=== PATIENT | female | born 1950 | race Caucasian/White ===

== ENCOUNTER 2018-02-13 04:21 | Inpatient (IN) | payer OTHER ==
[2018-02-13 04:51] LABS: WHITE BLOOD COUNT 15.6 10^3/ul (4.8-10.8)
[2018-02-13 04:51] LABS: ABNORMAL IP MESSAGE 1; HEMATOCRIT 41.8 % (37.0-47.0); HEMOGLOBIN 12.9 g/dl (12.0-16.0); MEAN CORPUSCULAR HGB CONC 30.9 g/dl (32.0-37.0); MEAN CORPUSCULAR VOLUME 93.9 fl (82.0-101.0); MEAN PLATELET VOLUME 11.3 fl (7.4-10.4); PLATELET COUNT 298 10^3/UL (140-415); RED BLOOD COUNT 4.45 10^6/ul (4.20-5.40); RED CELL DISTRIBUTION WIDTH 12.9 % (11.5-14.5)
[2018-02-13] MEDS ORDERED: PROPOFOL 100 ML (04:55)
[2018-02-13 05:07] LABS: POSITIVE DIFF @See below
[2018-02-13 05:09] LABS: LACTIC ACID 8.4 mmol/L (0.5-2.0)
[2018-02-13 05:09] LABS: ALANINE AMINOTRANSFERASE 24 IU/L (13-69); ALBUMIN 4.5 g/dl (3.3-4.9); ALBUMIN/GLOBULIN RATIO 1.32; ALKALINE PHOSPHATASE 89 IU/L (42-121); ANION GAP 30 (8-16); ASPARTATE AMINO TRANSFERASE 42 IU/L (15-46); BLOOD UREA NITROGEN 19 mg/dl (7-20); CALCIUM 8.6 mg/dl (8.4-10.2); CARBON DIOXIDE 18 mmol/L (21-31); CHLORIDE 104 mmol/L (97-110); GLUCOSE 314 mg/dl (70-220); POTASSIUM 4.1 mmol/L (3.5-5.1); SODIUM 148 mmol/L (135-144); TOTAL PROTEIN 7.9 g/dl (6.1-8.1)
[2018-02-13 05:11] LABS: PROTIME 13.3 Sec (11.9-14.9)
[2018-02-13 05:12] LABS: PARTIAL THROMBOPLASTIN TIME 26.6 Sec (25.0-35.0)
[2018-02-13 05:19] LABS: ADD UMIC YES; UR ASCORBIC ACID NEGATIVE (NEGATIVE); UR BACTERIA FEW /HPF (NONE SEEN); UR BILIRUBIN (Dip) NEGATIVE (NEGATIVE); UR BLOOD (Dip) NEGATIVE (NEGATIVE); UR CLARITY SLIGHTLY CLOUDY (CLEAR); UR COLOR YELLOW (YELLOW); UR GLUCOSE (Dip) 3+ mg/dL (NEGATIVE); UR KETONES (Dip) NEGATIVE (NEGATIVE); UR LEUKOCYTE ESTERASE (Dip) NEGATIVE Leu/ul (NEGATIVE); UR NITRITE (Dip) NEGATIVE (NEGATIVE); UR RBC 4 /HPF (0-5); UR TOTAL PROTEIN (Dip) 3+ mg/dl (NEGATIVE); UR UROBILINOGEN (Dip) NEGATIVE (NEGATIVE); UR WBC 6 /HPF (0-5)
[2018-02-13 05:21] LABS: TROPONIN-I < 0.012 ng/ml (0.00-0.12)
[2018-02-13] MEDS: PROPOFOL 100 ML IV ×2 (05:26→22:50)
[2018-02-13] MEDS: SOD CHLORIDE 0.9% 3,100 ML IV (05:48)
[2018-02-13] MEDS: VECURONIUM 10 MG VIAL IV ×2 (05:48→05:58)
[2018-02-13] MEDS: PIPER-TAZO 3.375 GM IV (PMX) 100 ML IVPB ×3 (05:51→18:34)
[2018-02-13] MEDS: SOD CHLORIDE 0.9% 1,000 ML IV ×2 (06:26→16:48)
[2018-02-13] MEDS ORDERED: ALBUTEROL HFA 8 GM INHALER INH (06:30)
[2018-02-13] MEDS ORDERED: IPRATROPIUM (HFA) 12.9 GM INHALER INH (06:30)
[2018-02-13] MEDS ORDERED: LORAZEPAM 2 MG INJ IV (06:30)
[2018-02-13] MEDS ORDERED: ACETAMINOPHEN 650 MG SUPP PR (06:30)
[2018-02-13] MEDS: VANCOMYCIN 1 GM (PMX) 250 ML IVPB (06:33)
[2018-02-13 06:43] LABS: LACTIC ACID 3.7 mmol/L (0.5-2.0)
[2018-02-13 06:53] LABS: AADO2 Arterial 563.7 mmHg (7.0-24.0); Allen Test ACCEPTAB; Arterial Base Excess -11.2 mmol/L (-3.0-3); Arterial Blood Gas Oxygen Sat 96.6 mmHG (95.0-98.0); Arterial COHb 1.1 % (0.0-3.0); Arterial Fraction of Oxyhgb 95.3 % (93.0-99.0); Arterial HCO3 17.1 mmol/L (22.0-26.0); Arterial MetHb 0.2 % (0.0-1.5); Arterial Total Hemglobin 13.4 g/dl (12.0-18.0); Arterial pCO2 47.7 mmhg (35-45); MODE VENT - AC; Site Right Radial
[2018-02-13] MEDS ORDERED: DEXTROSE 50% 50 ML SYRINGE IV ×4 (07:00→13:30)
[2018-02-13] MEDS ORDERED: GLUCAGON 1 MG INJ IM (07:00)
[2018-02-13] MEDS ORDERED: GLUCOSE GEL 15 GRAM TUBE PO ×2 (07:00)
[2018-02-13] MEDS ORDERED: GLUCOSE GEL 15 GRAM TUBE BUCCAL (07:00)
[2018-02-13] MEDS ORDERED: ETOMIDATE 20 MG INJ (07:00)
[2018-02-13] MEDS ORDERED: ROCURONIUM 50 MG INJ (07:00)
[2018-02-13] MEDS: FENTAnyl (DRIP) 1000 mcg/100mL 100 ML IV (07:22)
[2018-02-13] MEDS ORDERED: VANCOMYCIN IV PER PHARMACY XX (07:30)
[2018-02-13] MEDS: VANCOMYCIN 1 GM in 250 ML IVPB (07:44)
[2018-02-13] MEDS: MIDAZOLAM 1 MG/ML 5 ML INJ IV (07:51)
[2018-02-13] MEDS: MIDAZOLAM (DRIP) 50 mg/50 mL 50 ML IV ×2 (09:07→20:55)
[2018-02-13] MEDS: INSULIN ASPART [NOVOLOG] 3 ML PEN SC (09:25)
[2018-02-13 09:36] LABS: ADD MAN DIFF? NO; EOSINOPHILS % (M) 3 % (0-7); ERYTHROBLAST% (NRBC) (M) 1 % (0-0); LYMPHOCYTES #M 8.2 10^3/ul (0.8-2.9); LYMPHOCYTES % (M) 53 % (15-51); MONOCYTE #M 0.3 10^3/ul (0.3-0.9); MONOCYTES % (M) 2 % (0-11); PLATELET ESTIMATE NORMAL; POLYCHROMASIA 3+ (0-0); SEGMENTED NEUTROPHILS (M) % 42 % (39-77); SMUDGE%M 1 % (0-0)
[2018-02-13 09:46] LABS: WHITE BLOOD COUNT 12.1 10^3/ul (4.8-10.8)
[2018-02-13 09:46] LABS: BASOPHILS % 0.2 % (0.0-2.0); EOSINOPHILS # 0.1 10^3/ul (0.0-0.5); EOSINOPHILS % 0.5 % (0.0-7.0); HEMATOCRIT 33.5 % (37.0-47.0); HEMOGLOBIN 11.1 g/dl (12.0-16.0); LYMPHOCYTES % 16.2 % (15.0-51.0); MEAN CORPUSCULAR HEMOGLOBIN 29.7 pg (29.0-33.0); MEAN CORPUSCULAR HGB CONC 33.1 g/dl (32.0-37.0); MEAN CORPUSCULAR VOLUME 89.6 fl (82.0-101.0); MEAN PLATELET VOLUME 11.5 fl (7.4-10.4); MONOCYTE # 0.8 10^3/ul (0.3-0.9); MONOCYTES % 6.2 % (0.0-11.0); NEUTROPHIL # 9.2 10^3/ul (1.6-7.5); NEUTROPHILS % 76.4 % (39.0-77.0); PLATELET COUNT 201 10^3/UL (140-415); RED BLOOD COUNT 3.74 10^6/ul (4.20-5.40)
[2018-02-13 10:02] LABS: ALANINE AMINOTRANSFERASE 41 IU/L (13-69); ALBUMIN 3.4 g/dl (3.3-4.9); ALBUMIN/GLOBULIN RATIO 1.17; ALKALINE PHOSPHATASE 73 IU/L (42-121); ANION GAP 16 (8-16); ASPARTATE AMINO TRANSFERASE 56 IU/L (15-46); BLOOD UREA NITROGEN 18 mg/dl (7-20); CARBON DIOXIDE 18 mmol/L (21-31); CHLORIDE 112 mmol/L (97-110); CREATININE 0.71 mg/dl (0.44-1.00); GLUCOSE 212 mg/dl (70-220); POTASSIUM 5.9 mmol/L (3.5-5.1); SODIUM 140 mmol/L (135-144); TOTAL PROTEIN 6.3 g/dl (6.1-8.1)
[2018-02-13 10:07] LABS: LACTIC ACID 2.7 mmol/L (0.5-2.0)
[2018-02-13 10:10] LABS: B-TYPE NATRIURETIC PEPTIDE 1290 PG/ML (0-125)
[2018-02-13 10:12] LABS: HEMOGLOBIN A1C 6.9 % (0-5.9)
[2018-02-13 10:24] LABS: D-DIMER 4218.58 ng/ml (<460)
[2018-02-13 10:25] LABS: BASOPHIL # 0.1 10^3/ul (0.0-0.1); BASOPHILS % 0.4 % (0.0-2.0); EOSINOPHILS # 0.2 10^3/ul (0.0-0.5); EOSINOPHILS % 1.5 % (0.0-7.0)
[2018-02-13 10:26] LABS: ADD MAN DIFF? NO
[2018-02-13] MEDS: PANTOPRAZOLE (EC) 40 MG TAB PO (11:13)
[2018-02-13] MEDS: ENOXAPARIN 30 MG/0.3 ML SYG SC (11:30)
[2018-02-13 12:23] LABS: AADO2 Arterial 155.4 mmHg (7.0-24.0); Allen Test ACCEPTAB; Arterial Base Excess -5.2 mmol/L (-3.0-3); Arterial Blood Gas Oxygen Sat 98.9 mmHG (95.0-98.0); Arterial COHb 0.1 % (0.0-3.0); Arterial Fraction of Oxyhgb 98.5 % (93.0-99.0); Arterial HCO3 17.2 mmol/L (22.0-26.0); Arterial MetHb 0.3 % (0.0-1.5); Arterial Total Hemglobin 11.8 g/dl (12.0-18.0); Arterial pCO2 25.2 mmhg (35-45); Blood Gas Low PEEP Setting 0 cmH2O; MODE VENT - AC; Site Right Radial
[2018-02-13] MEDS: METHYLPREDNISOLONE 40 MG INJ IV ×2 (12:29→18:27)
[2018-02-13] MEDS: ACCU-CHEK XX ×10 (14:06→23:15)
[2018-02-13] MEDS: INSULIN HUMAN REGULAR 100 UNIT in SOD CHLORIDE 0.9% 99 ML IV (15:04)
[2018-02-13] MEDS: FLUTICASONE 0.05% 16 GM NAS SPRAY NASAL (21:00)
[2018-02-13] MEDS: ATORVASTATIN 40 MG TAB PO (21:00)
[2018-02-13] MEDS ORDERED: FAMOTIDINE 20 MG TAB NGT (21:00)
[2018-02-14] MEDS: ACCU-CHEK XX ×13 (00:15→12:20)
[2018-02-14] MEDS: METHYLPREDNISOLONE 40 MG INJ IV ×3 (00:22→12:33)
[2018-02-14] MEDS: PIPER-TAZO 3.375 GM IV (PMX) 100 ML IVPB ×4 (00:22→17:49)
[2018-02-14] MEDS ORDERED: ACCU-CHEK XX (02:00)
[2018-02-14] MEDS: SOD CHLORIDE 0.9% 1,000 ML IV ×2 (03:45→12:33)
[2018-02-14] MEDS: PROPOFOL 100 ML IV (05:07)
[2018-02-14 05:44] LABS: ADD MAN DIFF? NO
[2018-02-14 05:56] LABS: WHITE BLOOD COUNT 14.7 10^3/ul (4.8-10.8)
[2018-02-14 05:56] LABS: BASOPHILS % 0.1 % (0.0-2.0); HEMATOCRIT 35.7 % (37.0-47.0); HEMOGLOBIN 11.9 g/dl (12.0-16.0); LYMPHOCYTES # 1.1 10^3/ul (0.8-2.9); LYMPHOCYTES % 7.8 % (15.0-51.0); MEAN CORPUSCULAR HEMOGLOBIN 29.5 pg (29.0-33.0); MEAN CORPUSCULAR HGB CONC 33.3 g/dl (32.0-37.0); MEAN CORPUSCULAR VOLUME 88.6 fl (82.0-101.0); MEAN PLATELET VOLUME 11.3 fl (7.4-10.4); MONOCYTE # 0.4 10^3/ul (0.3-0.9); MONOCYTES % 2.6 % (0.0-11.0); NEUTROPHILS % 88.6 % (39.0-77.0); PLATELET COUNT 217 10^3/UL (140-415); RED BLOOD COUNT 4.03 10^6/ul (4.20-5.40); RED CELL DISTRIBUTION WIDTH 13.2 % (11.5-14.5)
[2018-02-14] MEDS ORDERED: PANTOPRAZOLE 40 MG INJ IV (06:00)
[2018-02-14 06:07] LABS: ANION GAP 14 (8-16); BLOOD UREA NITROGEN 22 mg/dl (7-20); CALCIUM 7.9 mg/dl (8.4-10.2); CARBON DIOXIDE 19 mmol/L (21-31); CHLORIDE 113 mmol/L (97-110); CREATININE 0.69 mg/dl (0.44-1.00); GLUCOSE 170 mg/dl (70-220); MAGNESIUM 1.9 mg/dl (1.7-2.5); POTASSIUM 4.2 mmol/L (3.5-5.1); SODIUM 142 mmol/L (135-144)
[2018-02-14] MEDS: PANTOPRAZOLE (EC) 40 MG TAB PO (08:07)
[2018-02-14] MEDS: FLUTICASONE 0.05% 16 GM NAS SPRAY NASAL ×2 (09:00→22:15)
[2018-02-14] MEDS: FUROSEMIDE 20 MG INJ IV (09:00)
[2018-02-14] MEDS: ENOXAPARIN 30 MG/0.3 ML SYG SC (09:18)
[2018-02-14] MEDS: ASPIRIN 81 MG TAB PO (09:18)
[2018-02-14] MEDS: ESCITALOPRAM 10 MG TAB PO (09:18)
[2018-02-14 11:31] LABS: AADO2 Arterial 147.2 mmHg (7.0-24.0); Allen Test ACCEPTAB; Arterial Blood Gas Oxygen Sat 97.8 mmHG (95.0-98.0); Arterial COHb 0.3 % (0.0-3.0); Arterial Fraction of Oxyhgb 97.3 % (93.0-99.0); Arterial MetHb 0.2 % (0.0-1.5); Arterial Total Hemglobin 12.7 g/dl (12.0-18.0); Arterial pCO2 32.1 mmhg (35-45); MODE VENT - CPAP; Site Left Radial
[2018-02-14] MEDS ORDERED: GLUCOSE GEL 15 GRAM TUBE BUCCAL (13:30)
[2018-02-14] MEDS ORDERED: DEXTROSE 50% 50 ML SYRINGE IV ×2 (13:30)
[2018-02-14] MEDS ORDERED: GLUCAGON 1 MG INJ IM (13:30)
[2018-02-14] MEDS ORDERED: GLUCOSE GEL 15 GRAM TUBE PO ×2 (13:30)
[2018-02-14] MEDS: VANCOMYCIN 1.25 GM in SOD CHLORIDE 0.9% 250 ML IVPB (13:34)
[2018-02-14] MEDS: ALBUTEROL/IPRATROPIUM (NEB) 3 ML AMP HHN ×2 (13:48→20:44)
[2018-02-14] MEDS: INSULIN ASPART [NOVOLOG] 3 ML PEN SC ×3 (16:55→20:30)
[2018-02-14] MEDS: FUROSEMIDE 40 MG INJ IV (17:49)
[2018-02-14] MEDS: INSULIN GLARGINE [LANtus] 3 ML PEN SC (20:28)
[2018-02-14] MEDS: ATORVASTATIN 40 MG TAB PO (20:31)
[2018-02-15] MEDS: PIPER-TAZO 3.375 GM IV (PMX) 100 ML IVPB ×3 (00:41→11:36)
[2018-02-15] MEDS: ALBUTEROL/IPRATROPIUM (NEB) 3 ML AMP HHN ×4 (01:40→19:57)
[2018-02-15] MEDS: VANCOMYCIN 1.25 GM in SOD CHLORIDE 0.9% 250 ML IVPB ×2 (02:21→14:15)
[2018-02-15] MEDS: ACCU-CHEK XX (02:36)
[2018-02-15] MEDS: INSULIN ASPART [NOVOLOG] 3 ML PEN SC ×8 (02:51→20:18)
[2018-02-15 05:08] LABS: ADD MAN DIFF? NO
[2018-02-15 05:10] LABS: WHITE BLOOD COUNT 17.9 10^3/ul (4.8-10.8)
[2018-02-15 05:10] LABS: BASOPHILS % 0.2 % (0.0-2.0); HEMATOCRIT 31.5 % (37.0-47.0); HEMOGLOBIN 10.3 g/dl (12.0-16.0); LYMPHOCYTES # 1.3 10^3/ul (0.8-2.9); LYMPHOCYTES % 7.4 % (15.0-51.0); MEAN CORPUSCULAR HEMOGLOBIN 29.2 pg (29.0-33.0); MEAN CORPUSCULAR HGB CONC 32.7 g/dl (32.0-37.0); MEAN CORPUSCULAR VOLUME 89.2 fl (82.0-101.0); MEAN PLATELET VOLUME 11.8 fl (7.4-10.4); MONOCYTE # 1.4 10^3/ul (0.3-0.9); MONOCYTES % 7.9 % (0.0-11.0); NEUTROPHILS % 83.8 % (39.0-77.0); NUCLEATED RED BLOOD CELLS% 0.1 /100WBC (0.0-0.0); PLATELET COUNT 211 10^3/UL (140-415); RED BLOOD COUNT 3.53 10^6/ul (4.20-5.40)
[2018-02-15 05:39] LABS: ANION GAP 17 (8-16); BLOOD UREA NITROGEN 23 mg/dl (7-20); CALCIUM 7.9 mg/dl (8.4-10.2); CARBON DIOXIDE 20 mmol/L (21-31); CHLORIDE 110 mmol/L (97-110); CREATININE 0.91 mg/dl (0.44-1.00); GLUCOSE 318 mg/dl (70-220); POTASSIUM 3.9 mmol/L (3.5-5.1); SODIUM 143 mmol/L (135-144)
[2018-02-15] MEDS: FUROSEMIDE 40 MG INJ IV ×2 (06:28→17:26)
[2018-02-15] MEDS: PANTOPRAZOLE (EC) 40 MG TAB PO (06:28)
[2018-02-15] MEDS: ASPIRIN 81 MG TAB PO ×2 (09:32→19:30)
[2018-02-15] MEDS: ESCITALOPRAM 10 MG TAB PO (09:33)
[2018-02-15] MEDS: FLUTICASONE 0.05% 16 GM NAS SPRAY NASAL ×2 (09:33→21:22)
[2018-02-15] MEDS: ENOXAPARIN 30 MG/0.3 ML SYG SC (09:48)
[2018-02-15] MEDS: NITROGLYCERIN (SL) 0.4 MG TAB SL ×4 (16:47→20:48)
[2018-02-15] MEDS ORDERED: ASPIRIN 81 MG TAB PO (19:00)
[2018-02-15] MEDS: HEPARIN 1000 UNITS/ML 10 ML INJ IV (19:27)
[2018-02-15] MEDS: HEPARIN 25000 UNITS/250 ML 250 ML IV (19:41)
[2018-02-15 20:04] LABS: ADD MAN DIFF? NO
[2018-02-15] MEDS: ATORVASTATIN 40 MG TAB PO (20:16)
[2018-02-15 20:24] LABS: CREATINE KINASE 158 IU/L (23-200)
[2018-02-15 20:25] LABS: BASOPHIL # 0.1 10^3/ul (0.0-0.1); BASOPHILS % 0.3 % (0.0-2.0); EOSINOPHILS # 0.2 10^3/ul (0.0-0.5); EOSINOPHILS % 0.9 % (0.0-7.0); HEMATOCRIT 33.6 % (37.0-47.0); HEMOGLOBIN 10.9 g/dl (12.0-16.0); LYMPHOCYTES # 3.3 10^3/ul (0.8-2.9); MEAN CORPUSCULAR HEMOGLOBIN 29.2 pg (29.0-33.0); MEAN CORPUSCULAR HGB CONC 32.4 g/dl (32.0-37.0); MEAN CORPUSCULAR VOLUME 90.1 fl (82.0-101.0); MEAN PLATELET VOLUME 11.3 fl (7.4-10.4); MONOCYTE # 1.2 10^3/ul (0.3-0.9); MONOCYTES % 6.6 % (0.0-11.0); NEUTROPHIL # 13.4 10^3/ul (1.6-7.5); NEUTROPHILS % 73.8 % (39.0-77.0); PLATELET COUNT 227 10^3/UL (140-415); PT RATIO 1.1; RED BLOOD COUNT 3.73 10^6/ul (4.20-5.40)
[2018-02-15 20:25] LABS: WHITE BLOOD COUNT 18.2 10^3/ul (4.8-10.8)
[2018-02-15 20:27] LABS: PARTIAL THROMBOPLASTIN TIME 58.2 Sec (25.0-35.0)
[2018-02-15] MEDS: morphine 2 MG INJ IV (20:32)
[2018-02-15 20:37] LABS: CK INDEX 3.5; CK-MB 5.54 ng/ml (0.0-2.4)
[2018-02-15] MEDS: INSULIN GLARGINE [LANtus] 3 ML PEN SC (20:50)
[2018-02-15 21:23] LABS: PROTIME 14.3 Sec (11.9-14.9)
[2018-02-15 21:24] LABS: INR 1.09
[2018-02-16] MEDS: ACETAMINOPHEN 325 MG TAB PO ×2 (00:03→21:14)
[2018-02-16] MEDS: IOHEXOL 300MG/ML 150 ML BTL (00:30)
[2018-02-16] MEDS: SOD CHLORIDE 0.9% 100 ML (00:31)
[2018-02-16 01:21] LABS: PARTIAL THROMBOPLASTIN TIME 37.8 Sec (25.0-35.0)
[2018-02-16 01:26] LABS: CREATINE KINASE 134 IU/L (23-200)
[2018-02-16] MEDS: HEPARIN 1000 UNITS/ML 10 ML INJ IV ×2 (01:31→19:36)
[2018-02-16 01:39] LABS: VANCOMYCIN,TROUGH 12.6 ug/ml (10.0-20.0)
[2018-02-16 01:40] LABS: CK INDEX 2.6; CK-MB 3.54 ng/ml (0.0-2.4)
[2018-02-16] MEDS: VANCOMYCIN 1.25 GM in SOD CHLORIDE 0.9% 250 ML IVPB ×2 (02:23→16:46)
[2018-02-16] MEDS: ACCU-CHEK XX (02:23)
[2018-02-16] MEDS: ALBUTEROL/IPRATROPIUM (NEB) 3 ML AMP HHN ×4 (03:05→19:56)
[2018-02-16] MEDS: LEVOFLOXACIN 750 MG TABLET PO (06:54)
[2018-02-16] MEDS: PANTOPRAZOLE (EC) 40 MG TAB PO (06:55)
[2018-02-16] MEDS: FUROSEMIDE 40 MG INJ IV ×2 (06:55→18:00)
[2018-02-16 07:26] LABS: ADD MAN DIFF? NO
[2018-02-16 07:27] LABS: BASOPHIL # 0.1 10^3/ul (0.0-0.1); BASOPHILS % 0.3 % (0.0-2.0); EOSINOPHILS # 0.2 10^3/ul (0.0-0.5); EOSINOPHILS % 1.3 % (0.0-7.0); HEMATOCRIT 33.2 % (37.0-47.0); HEMOGLOBIN 10.7 g/dl (12.0-16.0); LYMPHOCYTES # 2.4 10^3/ul (0.8-2.9); LYMPHOCYTES % 14.8 % (15.0-51.0); MEAN CORPUSCULAR HEMOGLOBIN 29.2 pg (29.0-33.0); MEAN CORPUSCULAR HGB CONC 32.2 g/dl (32.0-37.0); MEAN CORPUSCULAR VOLUME 90.5 fl (82.0-101.0); MEAN PLATELET VOLUME 11.8 fl (7.4-10.4); MONOCYTE # 1.2 10^3/ul (0.3-0.9); MONOCYTES % 7.5 % (0.0-11.0); NEUTROPHIL # 12.5 10^3/ul (1.6-7.5); NEUTROPHILS % 75.8 % (39.0-77.0); PLATELET COUNT 215 10^3/UL (140-415); RED BLOOD COUNT 3.67 10^6/ul (4.20-5.40); RED CELL DISTRIBUTION WIDTH 14.1 % (11.5-14.5)
[2018-02-16 07:27] LABS: WHITE BLOOD COUNT 16.5 10^3/ul (4.8-10.8)
[2018-02-16] MEDS: morphine 2 MG INJ IV (07:35)
[2018-02-16 07:48] LABS: PARTIAL THROMBOPLASTIN TIME 69.5 Sec (25.0-35.0)
[2018-02-16] MEDS: INSULIN ASPART [NOVOLOG] 3 ML PEN SC ×7 (07:55→21:00)
[2018-02-16 08:01] LABS: CREATINE KINASE 114 IU/L (23-200)
[2018-02-16 08:13] LABS: CK-MB 2.33 ng/ml (0.0-2.4)
[2018-02-16] MEDS: ENOXAPARIN 30 MG/0.3 ML SYG SC (09:00)
[2018-02-16] MEDS: ASPIRIN 81 MG TAB PO (09:50)
[2018-02-16] MEDS: ESCITALOPRAM 10 MG TAB PO (09:50)
[2018-02-16] MEDS: FLUTICASONE 0.05% 16 GM NAS SPRAY NASAL ×2 (09:50→22:35)
[2018-02-16] MEDS ORDERED: LIDOCAINE 1% (MDV) 20 ML INJ ×4 (12:30→12:40)
[2018-02-16] MEDS ORDERED: IODIXANOL LOCM 100 ML BTL (12:30)
[2018-02-16] MEDS ORDERED: HEPARIN 1000 UNITS/ML 10 ML INJ (12:44)
[2018-02-16] MEDS ORDERED: MIDAZOLAM 1 MG/ML 2 ML INJ (12:45)
[2018-02-16] MEDS ORDERED: NITROGLYCERIN (IC) 100 MCG/ML INJ (12:45)
[2018-02-16] MEDS ORDERED: FENTAnyl 50 MCG/ML VIAL (12:45)
[2018-02-16] MEDS ORDERED: VERAPAMIL 5 MG INJ (12:45)
[2018-02-16 16:08] LABS: ANION GAP 14 (8-16); BLOOD UREA NITROGEN 20 mg/dl (7-20); CALCIUM 7.8 mg/dl (8.4-10.2); CARBON DIOXIDE 29 mmol/L (21-31); CHLORIDE 104 mmol/L (97-110); CREATININE 0.77 mg/dl (0.44-1.00); GLUCOSE 125 mg/dl (70-220); MAGNESIUM 1.8 mg/dl (1.7-2.5); PHOSPHORUS 2.9 mg/dl (2.5-4.9); POTASSIUM 3.5 mmol/L (3.5-5.1); SODIUM 143 mmol/L (135-144)
[2018-02-16] MEDS: HEPARIN 25000 UNITS/250 ML 250 ML IV (17:23)
[2018-02-16 18:00] LABS: CREATINE KINASE 87 IU/L (23-200)
[2018-02-16 18:09] LABS: PARTIAL THROMBOPLASTIN TIME 42.9 Sec (25.0-35.0)
[2018-02-16 18:13] LABS: CK INDEX 1.1; CK-MB 0.95 ng/ml (0.0-2.4)
[2018-02-16 20:25] LABS: ANION GAP 14 (8-16); BLOOD UREA NITROGEN 20 mg/dl (7-20); CALCIUM 8.1 mg/dl (8.4-10.2); CARBON DIOXIDE 31 mmol/L (21-31); CHLORIDE 98 mmol/L (97-110); CREATININE 0.75 mg/dl (0.44-1.00); GLUCOSE 186 mg/dl (70-220); MAGNESIUM 1.9 mg/dl (1.7-2.5); POTASSIUM 3.4 mmol/L (3.5-5.1); SODIUM 140 mmol/L (135-144)
[2018-02-16] MEDS: ATORVASTATIN 40 MG TAB PO (21:02)
[2018-02-16] MEDS: INSULIN GLARGINE [LANtus] 3 ML PEN SC (21:05)
[2018-02-16] MEDS: MAGNESIUM SULFATE 2 GM/50 ML 50 ML IVPB (21:22)
[2018-02-16] MEDS: ZOLPIDEM 5 MG TAB PO (21:23)
[2018-02-16] MEDS: POTASSIUM CHLORIDE 100 ML IVPB (22:35)
[2018-02-16 23:53] LABS: CK-MB 1.27 ng/ml (0.0-2.4)
[2018-02-17 00:09] LABS: CK INDEX 1.6; CREATINE KINASE 80 IU/L (23-200)
[2018-02-17] MEDS: ACCU-CHEK XX ×13 (02:00→23:39)
[2018-02-17] MEDS: ALBUTEROL/IPRATROPIUM (NEB) 3 ML AMP HHN ×3 (02:15→14:00)
[2018-02-17 02:16] LABS: ADD MAN DIFF? NO
[2018-02-17 02:17] LABS: WHITE BLOOD COUNT 10.7 10^3/ul (4.8-10.8)
[2018-02-17 02:17] LABS: BASOPHILS % 0.3 % (0.0-2.0); EOSINOPHILS # 0.4 10^3/ul (0.0-0.5); EOSINOPHILS % 3.7 % (0.0-7.0); HEMATOCRIT 34.1 % (37.0-47.0); LYMPHOCYTES # 3.1 10^3/ul (0.8-2.9); LYMPHOCYTES % 28.9 % (15.0-51.0); MEAN CORPUSCULAR HEMOGLOBIN 28.9 pg (29.0-33.0); MEAN CORPUSCULAR HGB CONC 32.3 g/dl (32.0-37.0); MEAN CORPUSCULAR VOLUME 89.5 fl (82.0-101.0); MEAN PLATELET VOLUME 10.9 fl (7.4-10.4); MONOCYTE # 0.8 10^3/ul (0.3-0.9); MONOCYTES % 7.5 % (0.0-11.0); NEUTROPHIL # 6.3 10^3/ul (1.6-7.5); NEUTROPHILS % 59.2 % (39.0-77.0); PLATELET COUNT 207 10^3/UL (140-415); RED BLOOD COUNT 3.81 10^6/ul (4.20-5.40); RED CELL DISTRIBUTION WIDTH 13.2 % (11.5-14.5)
[2018-02-17 02:39] LABS: ANION GAP 13 (8-16); BLOOD UREA NITROGEN 20 mg/dl (7-20); CALCIUM 8.1 mg/dl (8.4-10.2); CARBON DIOXIDE 31 mmol/L (21-31); CHLORIDE 98 mmol/L (97-110); CREATININE 0.65 mg/dl (0.44-1.00); GLUCOSE 159 mg/dl (70-220); MAGNESIUM 2.7 mg/dl (1.7-2.5); POTASSIUM 3.7 mmol/L (3.5-5.1); SODIUM 138 mmol/L (135-144)
[2018-02-17 03:02] LABS: PARTIAL THROMBOPLASTIN TIME 114.2 Sec (25.0-35.0)
[2018-02-17] MEDS: VANCOMYCIN 1.25 GM in SOD CHLORIDE 0.9% 250 ML IVPB ×3 (04:27→15:39)
[2018-02-17] MEDS: FUROSEMIDE 40 MG INJ IV (05:50)
[2018-02-17] MEDS: LEVOFLOXACIN 750 MG TABLET PO (06:00)
[2018-02-17] MEDS: PANTOPRAZOLE (EC) 40 MG TAB PO (06:37)
[2018-02-17] MEDS: INSULIN ASPART [NOVOLOG] 3 ML PEN SC ×2 (07:35→07:41)
[2018-02-17] MEDS: ESCITALOPRAM 10 MG TAB PO (08:30)
[2018-02-17] MEDS: ASPIRIN 81 MG TAB PO (08:30)
[2018-02-17] MEDS ORDERED: PAPAVERINE 60 MG INJ ×2 (08:31→11:09)
[2018-02-17] MEDS ORDERED: THROMBIN 5000 UNIT VIAL (08:31)
[2018-02-17] MEDS ORDERED: VANCOMYCIN 1 GM INJ ×2 (08:31→11:09)
[2018-02-17] MEDS: FLUTICASONE 0.05% 16 GM NAS SPRAY NASAL ×2 (08:31→20:25)
[2018-02-17] MEDS ORDERED: GELATIN SIZE 100 SPONGE (08:31)
[2018-02-17] MEDS ORDERED: HEPARIN 1000 UNITS/ML 10 ML INJ ×3 (08:32→10:58)
[2018-02-17] MEDS: HEPARIN 1000 UNITS/ML 10 ML INJ INJ (08:35)
[2018-02-17] MEDS: VANCOMYCIN 500MG INJ IMPLANTED (08:35)
[2018-02-17] MEDS: PAPAVERINE 60 MG INJ IRR (08:35)
[2018-02-17] MEDS: HEPARIN (10000 UNITS/ML) 10,000 UNIT, MILRINONE LACTATE 10 MG in SOD CHLORIDE 0.9% 1,00... SC (09:00)
[2018-02-17] MEDS: NORepinephrine 8MG/250 ML (PMX 250 ML IV (09:00)
[2018-02-17] MEDS: PHENYLephrine 20MG IN 250 ML 250 ML IV (09:00)
[2018-02-17] MEDS: EPINEPHrine 4 MG in DEXTROSE 5% 246 ML IV (09:00)
[2018-02-17] MEDS: MILRINONE LACTATE 2 MG in SOD CHLORIDE 0.9% 50 ML IV (09:00)
[2018-02-17] MEDS: ASPIRIN 600 MG SUPP PR (09:00)
[2018-02-17] MEDS ORDERED: MIDAZOLAM 5 ML ×2 (09:31→13:30)
[2018-02-17] MEDS ORDERED: MAGNESIUM SULFATE (MG) 50% 10 ML INJ (10:10)
[2018-02-17] MEDS ORDERED: POTASSIUM CHLORIDE 40 MEQ INJ (10:10)
[2018-02-17] MEDS ORDERED: LIDOCAINE 100 MG SYRINGE (10:11)
[2018-02-17] MEDS ORDERED: ALBUMIN HUMAN 25% 0 ML (10:12)
[2018-02-17] MEDS ORDERED: NA BICARBONATE 8.4% 50 ML SYG (10:12)
[2018-02-17] MEDS ORDERED: CEFAZOLIN 1 GM INJ ×2 (10:17→13:28)
[2018-02-17] MEDS ORDERED: MANNITOL 20% 0 ML IV (10:43)
[2018-02-17] MEDS ORDERED: PHENYLephrine 10 MG INJ (10:43)
[2018-02-17] MEDS ORDERED: FUROSEMIDE 20 MG INJ (10:47)
[2018-02-17] MEDS ORDERED: PROTAMINE 250 MG INJ (12:46)
[2018-02-17] MEDS ORDERED: LIDOCAINE 2% (SDV) 5 ML INJ (13:21)
[2018-02-17] MEDS ORDERED: ETOMIDATE 20 MG INJ (13:21)
[2018-02-17] MEDS ORDERED: MAGNESIUM SULFATE 1 GM/D5W 100 ML IVPB (13:30)
[2018-02-17] MEDS ORDERED: DOPamine-D5W 1.6 MG/ML 250 ML IV (13:30)
[2018-02-17] MEDS ORDERED: NITROGLYCERIN 50 MG/D5W (PMX) 250 ML IV (13:30)
[2018-02-17] MEDS ORDERED: DEXTROSE 50% 50 ML SYRINGE IV ×4 (13:30→17:00)
[2018-02-17] MEDS ORDERED: POTASSIUM CHLORIDE 50 ML IVPB ×2 (13:30→17:00)
[2018-02-17] MEDS ORDERED: ROCURONIUM 50 MG INJ (13:31)
[2018-02-17] MEDS: NITROGLYCERIN 50 MG/D5W (PMX) 250 ML IV (14:27)
[2018-02-17] MEDS: DOPamine-D5W 1.6 MG/ML 250 ML IV (14:28)
[2018-02-17] MEDS: POTASSIUM CHLORIDE 40 MEQ, CALCIUM CHLORIDE 10% 1 GM in DEXTROSE 5%-0.225% NACL 1,000 ML IV ×2 (14:30→15:42)
[2018-02-17] MEDS: INSULIN HUMAN REGULAR 100 UNIT in SOD CHLORIDE 0.9% 99 ML IVPB (14:30)
[2018-02-17 14:54] LABS: MODE VENT - AC; MetHgb Mixed Venous 0.5 %; Mixed Venous Base Excess 1.8 mmol/L; Mixed Venous COHb 0.3 %; Mixed Venous Fraction OxyHgb 77.5 %; Mixed Venous Oxygen Sat 78.1 mmHG (65.0-75.0); Mixed Venous Total Hemglobin 10.3 g/dl; Sample Type BLMV; Site PAL
[2018-02-17 14:55] LABS: Arterial Base Excess 2.4 mmol/L (-3.0-3); Arterial Blood Gas Oxygen Sat 98.6 mmHG (95.0-98.0); Arterial COHb 0.3 % (0.0-3.0); Arterial HCO3 25.4 mmol/L (22.0-26.0); Arterial MetHb 0.3 % (0.0-1.5); Arterial Total Hemglobin 10.6 g/dl (12.0-18.0); Arterial pCO2 33.5 mmhg (35-45); MODE VENT - AC; Site A-Line
[2018-02-17] MEDS: morphine 2 MG INJ IV (15:03)
[2018-02-17 15:17] LABS: WHITE BLOOD COUNT 13.8 10^3/ul (4.8-10.8)
[2018-02-17 15:17] LABS: HEMATOCRIT 30.8 % (37.0-47.0); MEAN CORPUSCULAR HEMOGLOBIN 29.2 pg (29.0-33.0); MEAN CORPUSCULAR HGB CONC 32.5 g/dl (32.0-37.0); MEAN CORPUSCULAR VOLUME 89.8 fl (82.0-101.0); MEAN PLATELET VOLUME 11.7 fl (7.4-10.4); PLATELET COUNT 166 10^3/UL (140-415); RED BLOOD COUNT 3.43 10^6/ul (4.20-5.40); RED CELL DISTRIBUTION WIDTH 13.1 % (11.5-14.5)
[2018-02-17 15:32] LABS: ANION GAP 11 (8-16); BLOOD UREA NITROGEN 18 mg/dl (7-20); CALCIUM 7.5 mg/dl (8.4-10.2); CARBON DIOXIDE 30 mmol/L (21-31); CHLORIDE 103 mmol/L (97-110); CREATININE 0.62 mg/dl (0.44-1.00); GLUCOSE 99 mg/dl (70-220); MAGNESIUM 1.9 mg/dl (1.7-2.5); POTASSIUM 3.1 mmol/L (3.5-5.1); SODIUM 141 mmol/L (135-144)
[2018-02-17 15:34] LABS: INR 1.12; PARTIAL THROMBOPLASTIN TIME 20.1 Sec (25.0-35.0); PROTIME 14.6 Sec (11.9-14.9); PT RATIO 1.1
[2018-02-17] MEDS: CEFAZOLIN 1 GM/50 ML (PMX) 50 ML IVPB ×2 (15:38→22:03)
[2018-02-17 15:49] LABS: ADD MAN DIFF? YES; POSITIVE DIFF @See below
[2018-02-17] MEDS: PROPOFOL 100 ML IV ×3 (15:56→21:59)
[2018-02-17] MEDS: HYDROmorphONE 0.5 MG/0.5 ML SYG IV ×2 (16:01→17:37)
[2018-02-17 16:51] LABS: MYCOPLASMA PNEUMONIAE AB (IGG) 3.13
[2018-02-17] MEDS ORDERED: INSULIN HUMAN REGULAR 100 UNIT in SOD CHLORIDE 0.9% 99 ML IV (17:00)
[2018-02-17] MEDS ORDERED: ACCU-CHEK XX (17:00)
[2018-02-17] MEDS: POTASSIUM CHLORIDE 50 ML IVPB ×4 (17:09→22:54)
[2018-02-17] MEDS: INSULIN HUMAN REGULAR 100 UNIT in SOD CHLORIDE 0.9% 99 ML IV (17:20)
[2018-02-17 19:32] LABS: ANISOCYTOSIS 1+ (0-0); BAND NEUTROPHILS #M 1.3 10^3/ul (0.0-0.6); BAND NEUTROPHILS % (M) 10 % (0-4); EOSINOPHILS % (M) 1 % (0-7); GIANT THROMBO% (M) 2 % (0-0); LYMPHOCYTES #M 1.9 10^3/ul (0.8-2.9); LYMPHOCYTES % (M) 14 % (15-51); MONOCYTE #M 0.4 10^3/ul (0.3-0.9); MONOCYTES % (M) 3 % (0-11); PLATELET ESTIMATE NORMAL; POLYCHROMASIA 2+ (0-0); REACTIVE LYMPHOCYTES #M 0.1 10^3/ul (0.0-0.0); REACTIVE LYMPHOCYTES% (M) 1 % (0-0); SEGMENTED NEUTROPHILS (M) % 71 % (39-77); SMUDGE%M 4 % (0-0); TEAR DROP CELLS 1+ (0-0)
[2018-02-17] MEDS: FAMOTIDINE 20 MG INJ IV (20:23)
[2018-02-17 22:27] LABS: POTASSIUM 3.9 mmol/L (3.5-5.1)
[2018-02-18] MEDS: ACETAMINOPHEN 650 MG SUPP PR (00:56)
[2018-02-18] MEDS: PROPOFOL 100 ML IV (00:56)
[2018-02-18] MEDS: ACCU-CHEK XX ×13 (01:10→12:46)
[2018-02-18] MEDS: VANCOMYCIN 1.25 GM in SOD CHLORIDE 0.9% 250 ML IVPB ×2 (01:51→14:13)
[2018-02-18] MEDS: FUROSEMIDE 40 MG INJ IV (02:18)
[2018-02-18] MEDS: HYDROmorphONE 0.5 MG/0.5 ML SYG IV (03:13)
[2018-02-18 05:13] LABS: ADD MAN DIFF? NO
[2018-02-18 05:14] LABS: BASOPHILS % 0.2 % (0.0-2.0); EOSINOPHILS # 0.2 10^3/ul (0.0-0.5); EOSINOPHILS % 1.9 % (0.0-7.0); HEMATOCRIT 31.8 % (37.0-47.0); HEMOGLOBIN 10.4 g/dl (12.0-16.0); LYMPHOCYTES # 1.3 10^3/ul (0.8-2.9); LYMPHOCYTES % 11.2 % (15.0-51.0); MEAN CORPUSCULAR HGB CONC 32.7 g/dl (32.0-37.0); MEAN CORPUSCULAR VOLUME 88.6 fl (82.0-101.0); MEAN PLATELET VOLUME 12.2 fl (7.4-10.4); MONOCYTE # 0.9 10^3/ul (0.3-0.9); MONOCYTES % 7.6 % (0.0-11.0); NEUTROPHIL # 9.1 10^3/ul (1.6-7.5); NEUTROPHILS % 78.7 % (39.0-77.0); PLATELET COUNT 201 10^3/UL (140-415); RED BLOOD COUNT 3.59 10^6/ul (4.20-5.40); RED CELL DISTRIBUTION WIDTH 13.2 % (11.5-14.5)
[2018-02-18 05:14] LABS: WHITE BLOOD COUNT 11.6 10^3/ul (4.8-10.8)
[2018-02-18] MEDS: morphine 2 MG INJ IV ×5 (05:29→21:16)
[2018-02-18] MEDS: CEFAZOLIN 1 GM/50 ML (PMX) 50 ML IVPB (05:30)
[2018-02-18 05:38] LABS: INR 1.02; PROTIME 13.5 Sec (11.9-14.9); PT RATIO 1.1
[2018-02-18 05:39] LABS: PARTIAL THROMBOPLASTIN TIME 29.6 Sec (25.0-35.0)
[2018-02-18 05:48] LABS: AADO2 Arterial 136.3 mmHg (7.0-24.0); Arterial Base Excess 2.9 mmol/L (-3.0-3); Arterial Blood Gas Oxygen Sat 97.4 mmHG (95.0-98.0); Arterial COHb 0.3 % (0.0-3.0); Arterial Fraction of Oxyhgb 96.8 % (93.0-99.0); Arterial HCO3 27.6 mmol/L (22.0-26.0); Arterial MetHb 0.3 % (0.0-1.5); Arterial Total Hemglobin 11.9 g/dl (12.0-18.0); Arterial pCO2 42.6 mmhg (35-45); Blood Gas PS 8; MODE VENT - CPAP; Site A-Line
[2018-02-18 05:54] LABS: ANION GAP 13 (8-16); BLOOD UREA NITROGEN 17 mg/dl (7-20); CALCIUM 8.3 mg/dl (8.4-10.2); CARBON DIOXIDE 26 mmol/L (21-31); CHLORIDE 104 mmol/L (97-110); CREATININE 0.67 mg/dl (0.44-1.00); GLUCOSE 130 mg/dl (70-220); SODIUM 139 mmol/L (135-144)
[2018-02-18] MEDS: LEVOFLOXACIN 750 MG TABLET PO ×2 (06:00→12:48)
[2018-02-18] MEDS: POTASSIUM CHLORIDE 40 MEQ, CALCIUM CHLORIDE 10% 1 GM in DEXTROSE 5%-0.225% NACL 1,000 ML IV (06:26)
[2018-02-18] MEDS: INSULIN HUMAN REGULAR 100 UNIT in SOD CHLORIDE 0.9% 99 ML IV (06:28)
[2018-02-18] MEDS: POTASSIUM CHLORIDE 50 ML IVPB (06:32)
[2018-02-18] MEDS ORDERED: KETOROLAC 30 MG INJ IV (06:49)
[2018-02-18] MEDS: KETOROLAC 30 MG INJ IV (06:53)
[2018-02-18] MEDS: PANTOPRAZOLE (EC) 40 MG TAB PO (07:05)
[2018-02-18] MEDS: FLUTICASONE 0.05% 16 GM NAS SPRAY NASAL ×2 (09:00→20:10)
[2018-02-18] MEDS: ESCITALOPRAM 10 MG TAB PO ×2 (09:00→12:48)
[2018-02-18] MEDS: ASPIRIN 325 MG TAB PO ×2 (09:00→12:47)
[2018-02-18] MEDS: FAMOTIDINE 20 MG INJ IV ×2 (09:06→20:09)
[2018-02-18] MEDS: LISINOPRIL 5 MG TAB PO ×2 (10:00→12:47)
[2018-02-18] MEDS: FUROSEMIDE 20 MG INJ IV ×2 (10:46→18:25)
[2018-02-18] MEDS: INSULIN GLARGINE [LANtus] 3 ML PEN SC (12:51)
[2018-02-18] MEDS: ONDANSETRON 4 MG INJ IV ×2 (12:59→20:09)
[2018-02-18] MEDS: NITROGLYCERIN 50 MG/D5W (PMX) 250 ML IV (13:00)
[2018-02-18 16:10] LABS: ANION GAP 14 (8-16); BLOOD UREA NITROGEN 21 mg/dl (7-20); CARBON DIOXIDE 26 mmol/L (21-31); CHLORIDE 103 mmol/L (97-110); CREATININE 0.81 mg/dl (0.44-1.00); GLUCOSE 138 mg/dl (70-220); POTASSIUM 4.6 mmol/L (3.5-5.1); SODIUM 138 mmol/L (135-144)
[2018-02-18 16:11] LABS: MAGNESIUM 1.9 mg/dl (1.7-2.5)
[2018-02-18 17:50] LABS: HEMATOCRIT 27.8 % (37.0-47.0)
[2018-02-18] MEDS: INSULIN ASPART [NOVOLOG] 3 ML PEN SC ×3 (18:22→20:27)
[2018-02-18] MEDS: ATORVASTATIN 40 MG TAB PO (20:10)
[2018-02-18] MEDS: ACETAMINOPHEN 650MG/20.3ML CUP NGT (21:04)
[2018-02-19] MEDS: ACCU-CHEK XX (02:24)
[2018-02-19] MEDS: VANCOMYCIN 1.25 GM in SOD CHLORIDE 0.9% 250 ML IVPB ×2 (02:25→14:41)
[2018-02-19] MEDS: morphine 2 MG INJ IV ×2 (02:56→09:04)
[2018-02-19] MEDS: HYDROmorphONE 0.5 MG/0.5 ML SYG IV (04:43)
[2018-02-19] MEDS: ONDANSETRON 4 MG INJ IV (04:43)
[2018-02-19 05:27] LABS: ADD MAN DIFF? NO
[2018-02-19 05:32] LABS: WHITE BLOOD COUNT 15.6 10^3/ul (4.8-10.8)
[2018-02-19 05:32] LABS: ABNORMAL IP MESSAGE 1; BASOPHILS % 0.2 % (0.0-2.0); EOSINOPHILS # 0.6 10^3/ul (0.0-0.5); EOSINOPHILS % 3.9 % (0.0-7.0); HEMATOCRIT 27.8 % (37.0-47.0); LYMPHOCYTES % 12.6 % (15.0-51.0); MEAN CORPUSCULAR HEMOGLOBIN 29.4 pg (29.0-33.0); MEAN CORPUSCULAR HGB CONC 32.4 g/dl (32.0-37.0); MEAN CORPUSCULAR VOLUME 90.8 fl (82.0-101.0); MEAN PLATELET VOLUME 11.9 fl (7.4-10.4); MONOCYTE # 1.7 10^3/ul (0.3-0.9); MONOCYTES % 10.7 % (0.0-11.0); NEUTROPHIL # 11.2 10^3/ul (1.6-7.5); NEUTROPHILS % 71.7 % (39.0-77.0); PLATELET COUNT 168 10^3/UL (140-415); RED BLOOD COUNT 3.06 10^6/ul (4.20-5.40); RED CELL DISTRIBUTION WIDTH 13.3 % (11.5-14.5)
[2018-02-19 05:39] LABS: POSITIVE DIFF @See below
[2018-02-19 05:49] LABS: ANION GAP 13 (8-16); BLOOD UREA NITROGEN 26 mg/dl (7-20); CARBON DIOXIDE 29 mmol/L (21-31); CHLORIDE 101 mmol/L (97-110); GLUCOSE 188 mg/dl (70-220); PHOSPHORUS 3.7 mg/dl (2.5-4.9); POTASSIUM 4.8 mmol/L (3.5-5.1); SODIUM 138 mmol/L (135-144)
[2018-02-19 05:51] LABS: INR 1.07; PT RATIO 1.1
[2018-02-19 05:52] LABS: PARTIAL THROMBOPLASTIN TIME 24.3 Sec (25.0-35.0)
[2018-02-19] MEDS: FUROSEMIDE 20 MG INJ IV (06:15)
[2018-02-19] MEDS: LEVOFLOXACIN 750 MG TABLET PO (06:15)
[2018-02-19] MEDS: PANTOPRAZOLE (EC) 40 MG TAB PO (06:15)
[2018-02-19] MEDS: ESCITALOPRAM 10 MG TAB PO (08:33)
[2018-02-19] MEDS: ASPIRIN 325 MG TAB PO (08:33)
[2018-02-19] MEDS: LISINOPRIL 5 MG TAB PO (08:33)
[2018-02-19] MEDS: FLUTICASONE 0.05% 16 GM NAS SPRAY NASAL ×2 (08:34→20:25)
[2018-02-19] MEDS: FAMOTIDINE 20 MG INJ IV (08:34)
[2018-02-19] MEDS: INSULIN ASPART [NOVOLOG] 3 ML PEN SC ×7 (08:35→20:30)
[2018-02-19] MEDS: INSULIN GLARGINE [LANtus] 3 ML PEN SC (08:38)
[2018-02-19] MEDS: OXYCODONE/ACETAMINOPHEN (5/325) TAB PO ×4 (10:21→20:25)
[2018-02-19 13:49] LABS: VANCOMYCIN,TROUGH 13.1 ug/ml (10.0-20.0)
[2018-02-19] MEDS: FAMOTIDINE 20 MG TAB PO (20:24)
[2018-02-19] MEDS: ZOLPIDEM 5 MG TAB PO (20:24)
[2018-02-19] MEDS: ATORVASTATIN 40 MG TAB PO (20:25)
[2018-02-19] MEDS: ENOXAPARIN 40 MG/0.4 ML SYG SC (20:27)
[2018-02-20] MEDS: ACCU-CHEK XX (02:00)
[2018-02-20] MEDS: VANCOMYCIN 1.25 GM in SOD CHLORIDE 0.9% 250 ML IVPB ×2 (03:41→13:58)
[2018-02-20] MEDS: LEVOFLOXACIN 750 MG TABLET PO (05:30)
[2018-02-20 05:46] LABS: ADD MAN DIFF? NO
[2018-02-20 05:50] LABS: ABNORMAL IP MESSAGE 1; BASOPHILS % 0.3 % (0.0-2.0); EOSINOPHILS # 0.6 10^3/ul (0.0-0.5); EOSINOPHILS % 4.1 % (0.0-7.0); HEMATOCRIT 27.9 % (37.0-47.0); HEMOGLOBIN 8.9 g/dl (12.0-16.0); LYMPHOCYTES # 1.8 10^3/ul (0.8-2.9); LYMPHOCYTES % 12.5 % (15.0-51.0); MEAN CORPUSCULAR HEMOGLOBIN 29.2 pg (29.0-33.0); MEAN CORPUSCULAR HGB CONC 31.9 g/dl (32.0-37.0); MEAN CORPUSCULAR VOLUME 91.5 fl (82.0-101.0); MEAN PLATELET VOLUME 11.4 fl (7.4-10.4); MONOCYTE # 1.6 10^3/ul (0.3-0.9); MONOCYTES % 10.9 % (0.0-11.0); NEUTROPHIL # 10.3 10^3/ul (1.6-7.5); NEUTROPHILS % 71.2 % (39.0-77.0); PLATELET COUNT 196 10^3/UL (140-415); RED BLOOD COUNT 3.05 10^6/ul (4.20-5.40); RED CELL DISTRIBUTION WIDTH 13.4 % (11.5-14.5)
[2018-02-20 05:50] LABS: WHITE BLOOD COUNT 14.5 10^3/ul (4.8-10.8)
[2018-02-20 06:11] LABS: ANION GAP 12 (8-16); BLOOD UREA NITROGEN 33 mg/dl (7-20); CALCIUM 8.3 mg/dl (8.4-10.2); CARBON DIOXIDE 29 mmol/L (21-31); CHLORIDE 101 mmol/L (97-110); CREATININE 0.93 mg/dl (0.44-1.00); GLUCOSE 133 mg/dl (70-220); POTASSIUM 4.8 mmol/L (3.5-5.1); SODIUM 137 mmol/L (135-144)
[2018-02-20 06:14] LABS: POSITIVE DIFF @See below
[2018-02-20] MEDS: PANTOPRAZOLE (EC) 40 MG TAB PO (06:36)
[2018-02-20] MEDS: OXYCODONE/ACETAMINOPHEN (5/325) TAB PO ×3 (06:38→23:21)
[2018-02-20] MEDS: INSULIN ASPART [NOVOLOG] 3 ML PEN SC ×7 (07:35→21:00)
[2018-02-20] MEDS: FAMOTIDINE 20 MG TAB PO ×2 (07:55→20:57)
[2018-02-20] MEDS: INSULIN GLARGINE [LANtus] 3 ML PEN SC (07:59)
[2018-02-20] MEDS: FUROSEMIDE 20 MG INJ IV (09:05)
[2018-02-20] MEDS: ASPIRIN 325 MG TAB PO (09:06)
[2018-02-20] MEDS: LISINOPRIL 5 MG TAB PO (09:06)
[2018-02-20] MEDS: ESCITALOPRAM 10 MG TAB PO (09:06)
[2018-02-20] MEDS: FLUTICASONE 0.05% 16 GM NAS SPRAY NASAL ×2 (09:07→20:37)
[2018-02-20] MEDS: ENOXAPARIN 40 MG/0.4 ML SYG SC ×2 (09:08→20:42)
[2018-02-20] MEDS: ATORVASTATIN 40 MG TAB PO (20:36)
[2018-02-20] MEDS ORDERED: GUAIFENESIN/CODEINE 5ML CUP PO (23:30)
[2018-02-20] MEDS: ALBUTEROL/IPRATROPIUM (NEB) 3 ML AMP HHN (23:46)
[2018-02-21] MEDS: GUAIFENESIN/DM 5ML CUP PO (00:18)
[2018-02-21] MEDS: ACCU-CHEK XX (02:28)
[2018-02-21] MEDS: VANCOMYCIN 1.25 GM in SOD CHLORIDE 0.9% 250 ML IVPB ×2 (03:09→14:10)
[2018-02-21] MEDS: PANTOPRAZOLE (EC) 40 MG TAB PO (06:17)
[2018-02-21 07:21] LABS: ADD MAN DIFF? NO
[2018-02-21 07:24] LABS: ABNORMAL IP MESSAGE 1; BASOPHILS % 0.3 % (0.0-2.0); EOSINOPHILS # 0.5 10^3/ul (0.0-0.5); EOSINOPHILS % 3.5 % (0.0-7.0); HEMATOCRIT 27.2 % (37.0-47.0); HEMOGLOBIN 8.7 g/dl (12.0-16.0); LYMPHOCYTES # 2.3 10^3/ul (0.8-2.9); MEAN CORPUSCULAR HEMOGLOBIN 29.2 pg (29.0-33.0); MEAN CORPUSCULAR VOLUME 91.3 fl (82.0-101.0); MEAN PLATELET VOLUME 11.4 fl (7.4-10.4); MONOCYTE # 1.7 10^3/ul (0.3-0.9); NEUTROPHIL # 8.3 10^3/ul (1.6-7.5); NEUTROPHILS % 64.2 % (39.0-77.0); PLATELET COUNT 216 10^3/UL (140-415); RED BLOOD COUNT 2.98 10^6/ul (4.20-5.40); RED CELL DISTRIBUTION WIDTH 13.2 % (11.5-14.5)
[2018-02-21 07:24] LABS: WHITE BLOOD COUNT 12.9 10^3/ul (4.8-10.8)
[2018-02-21 07:31] LABS: POSITIVE DIFF @See below
[2018-02-21 07:43] LABS: ANION GAP 10 (8-16); BLOOD UREA NITROGEN 21 mg/dl (7-20); CALCIUM 8.1 mg/dl (8.4-10.2); CARBON DIOXIDE 28 mmol/L (21-31); CHLORIDE 103 mmol/L (97-110); CREATININE 0.79 mg/dl (0.44-1.00); GLUCOSE 98 mg/dl (70-220); POTASSIUM 4.2 mmol/L (3.5-5.1); SODIUM 137 mmol/L (135-144)
[2018-02-21] MEDS: INSULIN ASPART [NOVOLOG] 3 ML PEN SC ×7 (07:55→21:00)
[2018-02-21] MEDS: FAMOTIDINE 20 MG TAB PO ×2 (08:18→20:59)
[2018-02-21] MEDS: ESCITALOPRAM 10 MG TAB PO (08:19)
[2018-02-21] MEDS: LISINOPRIL 5 MG TAB PO (08:19)
[2018-02-21] MEDS: ASPIRIN 325 MG TAB PO (08:22)
[2018-02-21] MEDS: ENOXAPARIN 40 MG/0.4 ML SYG SC ×2 (08:36→21:10)
[2018-02-21] MEDS: INSULIN GLARGINE [LANtus] 3 ML PEN SC (08:37)
[2018-02-21] MEDS: FLUTICASONE 0.05% 16 GM NAS SPRAY NASAL ×2 (09:20→21:00)
[2018-02-21] MEDS: morphine 2 MG INJ IV ×3 (09:26→18:05)
[2018-02-21] MEDS: ATORVASTATIN 40 MG TAB PO (20:53)
[2018-02-21] MEDS: OXYCODONE/ACETAMINOPHEN (5/325) TAB PO (22:38)
[2018-02-22] MEDS: ACCU-CHEK XX (01:27)
[2018-02-22] MEDS: VANCOMYCIN 1.25 GM in SOD CHLORIDE 0.9% 250 ML IVPB ×2 (01:48→14:14)
[2018-02-22] MEDS: FUROSEMIDE 20 MG TAB PO (06:13)
[2018-02-22] MEDS: PANTOPRAZOLE (EC) 40 MG TAB PO (06:51)
[2018-02-22 08:26] LABS: ADD MAN DIFF? NO
[2018-02-22 08:29] LABS: WHITE BLOOD COUNT 13.8 10^3/ul (4.8-10.8)
[2018-02-22 08:29] LABS: ABNORMAL IP MESSAGE 1; BASOPHILS % 0.3 % (0.0-2.0); EOSINOPHILS # 0.4 10^3/ul (0.0-0.5); EOSINOPHILS % 2.5 % (0.0-7.0); HEMATOCRIT 29.4 % (37.0-47.0); HEMOGLOBIN 9.4 g/dl (12.0-16.0); LYMPHOCYTES # 2.3 10^3/ul (0.8-2.9); LYMPHOCYTES % 16.9 % (15.0-51.0); MEAN CORPUSCULAR HEMOGLOBIN 29.2 pg (29.0-33.0); MEAN CORPUSCULAR VOLUME 91.3 fl (82.0-101.0); MEAN PLATELET VOLUME 11.3 fl (7.4-10.4); MONOCYTES % 14.3 % (0.0-11.0); NEUTROPHIL # 8.9 10^3/ul (1.6-7.5); NEUTROPHILS % 64.4 % (39.0-77.0); PLATELET COUNT 264 10^3/UL (140-415); RED BLOOD COUNT 3.22 10^6/ul (4.20-5.40); RED CELL DISTRIBUTION WIDTH 13.1 % (11.5-14.5)
[2018-02-22 08:30] LABS: POSITIVE DIFF @See below
[2018-02-22] MEDS: FLUTICASONE 0.05% 16 GM NAS SPRAY NASAL ×2 (08:35→21:00)
[2018-02-22] MEDS: FAMOTIDINE 20 MG TAB PO ×2 (08:35→21:00)
[2018-02-22] MEDS: ASPIRIN 81 MG TAB PO (08:36)
[2018-02-22] MEDS: ESCITALOPRAM 10 MG TAB PO (08:37)
[2018-02-22] MEDS: CLOPIDOGREL 75 MG TAB PO (08:37)
[2018-02-22] MEDS: LISINOPRIL 5 MG TAB PO (08:37)
[2018-02-22] MEDS: ENOXAPARIN 40 MG/0.4 ML SYG SC ×2 (08:38→20:57)
[2018-02-22] MEDS: INSULIN ASPART [NOVOLOG] 3 ML PEN SC ×7 (08:39→20:59)
[2018-02-22] MEDS: INSULIN GLARGINE [LANtus] 3 ML PEN SC (08:40)
[2018-02-22 08:56] LABS: ANION GAP 12 (8-16); BLOOD UREA NITROGEN 19 mg/dl (7-20); CALCIUM 8.4 mg/dl (8.4-10.2); CARBON DIOXIDE 30 mmol/L (21-31); CHLORIDE 101 mmol/L (97-110); CREATININE 0.72 mg/dl (0.44-1.00); GLUCOSE 144 mg/dl (70-220); POTASSIUM 4.5 mmol/L (3.5-5.1); SODIUM 138 mmol/L (135-144)
[2018-02-22] MEDS: OXYCODONE/ACETAMINOPHEN (5/325) TAB PO ×3 (14:14→23:23)
[2018-02-22] MEDS: ATORVASTATIN 40 MG TAB PO (21:00)
[2018-02-23] MEDS: VANCOMYCIN 1.25 GM in SOD CHLORIDE 0.9% 250 ML IVPB ×2 (01:54→15:22)
[2018-02-23] MEDS: ACCU-CHEK XX (02:00)
[2018-02-23] MEDS ORDERED: FUROSEMIDE 20 MG INJ IV (05:00)
[2018-02-23] MEDS ORDERED: LEVOFLOXACIN 750 MG TABLET PO (06:00)
[2018-02-23] MEDS: PANTOPRAZOLE (EC) 40 MG TAB PO (06:44)
[2018-02-23] MEDS: FUROSEMIDE 20 MG TAB PO (06:45)
[2018-02-23 07:38] LABS: ADD MAN DIFF? NO
[2018-02-23 07:47] LABS: WHITE BLOOD COUNT 13.3 10^3/ul (4.8-10.8)
[2018-02-23 07:47] LABS: ABNORMAL IP MESSAGE 1; BASOPHILS % 0.3 % (0.0-2.0); EOSINOPHILS # 0.4 10^3/ul (0.0-0.5); EOSINOPHILS % 2.7 % (0.0-7.0); HEMATOCRIT 25.7 % (37.0-47.0); HEMOGLOBIN 8.3 g/dl (12.0-16.0); LYMPHOCYTES # 2.3 10^3/ul (0.8-2.9); MEAN CORPUSCULAR HGB CONC 32.3 g/dl (32.0-37.0); MEAN CORPUSCULAR VOLUME 89.9 fl (82.0-101.0); MEAN PLATELET VOLUME 10.8 fl (7.4-10.4); MONOCYTE # 1.5 10^3/ul (0.3-0.9); MONOCYTES % 11.4 % (0.0-11.0); NEUTROPHIL # 8.9 10^3/ul (1.6-7.5); NEUTROPHILS % 66.8 % (39.0-77.0); PLATELET COUNT 277 10^3/UL (140-415); RED BLOOD COUNT 2.86 10^6/ul (4.20-5.40); RED CELL DISTRIBUTION WIDTH 13.1 % (11.5-14.5)
[2018-02-23 07:48] LABS: POSITIVE DIFF @See below
[2018-02-23 08:23] LABS: ANION GAP 10 (8-16); BLOOD UREA NITROGEN 17 mg/dl (7-20); CALCIUM 7.8 mg/dl (8.4-10.2); CARBON DIOXIDE 29 mmol/L (21-31); CHLORIDE 103 mmol/L (97-110); CREATININE 0.72 mg/dl (0.44-1.00); GLUCOSE 141 mg/dl (70-220); POTASSIUM 4.2 mmol/L (3.5-5.1); SODIUM 138 mmol/L (135-144)
[2018-02-23] MEDS: INSULIN ASPART [NOVOLOG] 3 ML PEN SC ×7 (08:24→20:50)
[2018-02-23] MEDS: INSULIN GLARGINE [LANtus] 3 ML PEN SC (08:25)
[2018-02-23] MEDS: ENOXAPARIN 40 MG/0.4 ML SYG SC ×2 (08:25→20:58)
[2018-02-23] MEDS: FAMOTIDINE 20 MG TAB PO (08:51)
[2018-02-23] MEDS: CLOPIDOGREL 75 MG TAB PO (08:52)
[2018-02-23] MEDS: LISINOPRIL 5 MG TAB PO (08:52)
[2018-02-23] MEDS: ASPIRIN 81 MG TAB PO (08:52)
[2018-02-23] MEDS: FLUTICASONE 0.05% 16 GM NAS SPRAY NASAL ×2 (08:52→20:49)
[2018-02-23] MEDS: ESCITALOPRAM 10 MG TAB PO (08:53)
[2018-02-23] MEDS: OXYCODONE/ACETAMINOPHEN (5/325) TAB PO ×2 (09:01→21:03)
[2018-02-23] MEDS: ATORVASTATIN 40 MG TAB PO (20:49)
[2018-02-23] MEDS: BISACODYL 10 MG SUPP PR (21:24)
[2018-02-24] MEDS: ACCU-CHEK XX ×2 (00:56→22:26)
[2018-02-24 05:17] LABS: WHITE BLOOD COUNT 13.9 10^3/ul (4.8-10.8)
[2018-02-24 05:17] LABS: ADD MAN DIFF? NO; BASOPHILS % 0.2 % (0.0-2.0); EOSINOPHILS # 0.4 10^3/ul (0.0-0.5); EOSINOPHILS % 3.2 % (0.0-7.0); HEMATOCRIT 26.3 % (37.0-47.0); HEMOGLOBIN 8.6 g/dl (12.0-16.0); LYMPHOCYTES # 2.4 10^3/ul (0.8-2.9); LYMPHOCYTES % 17.2 % (15.0-51.0); MEAN CORPUSCULAR HEMOGLOBIN 29.3 pg (29.0-33.0); MEAN CORPUSCULAR HGB CONC 32.7 g/dl (32.0-37.0); MEAN CORPUSCULAR VOLUME 89.5 fl (82.0-101.0); MEAN PLATELET VOLUME 10.4 fl (7.4-10.4); MONOCYTE # 1.4 10^3/ul (0.3-0.9); MONOCYTES % 10.1 % (0.0-11.0); NEUTROPHIL # 9.4 10^3/ul (1.6-7.5); NEUTROPHILS % 67.7 % (39.0-77.0); PLATELET COUNT 341 10^3/UL (140-415); RED BLOOD COUNT 2.94 10^6/ul (4.20-5.40); RED CELL DISTRIBUTION WIDTH 13.1 % (11.5-14.5)
[2018-02-24] MEDS: FUROSEMIDE 20 MG TAB PO (05:43)
[2018-02-24] MEDS: OXYCODONE/ACETAMINOPHEN (5/325) TAB PO ×3 (05:46→20:43)
[2018-02-24 05:48] LABS: ANION GAP 10 (8-16); BLOOD UREA NITROGEN 15 mg/dl (7-20); CALCIUM 7.9 mg/dl (8.4-10.2); CARBON DIOXIDE 32 mmol/L (21-31); CHLORIDE 100 mmol/L (97-110); CREATININE 0.75 mg/dl (0.44-1.00); GLUCOSE 104 mg/dl (70-220); MAGNESIUM 2.1 mg/dl (1.7-2.5); PHOSPHORUS 4.1 mg/dl (2.5-4.9); POTASSIUM 4.1 mmol/L (3.5-5.1); SODIUM 138 mmol/L (135-144)
[2018-02-24] MEDS: PANTOPRAZOLE (EC) 40 MG TAB PO (07:00)
[2018-02-24] MEDS: INSULIN ASPART [NOVOLOG] 3 ML PEN SC ×8 (07:50→21:00)
[2018-02-24] MEDS: ESCITALOPRAM 10 MG TAB PO (08:48)
[2018-02-24] MEDS: CLOPIDOGREL 75 MG TAB PO (08:48)
[2018-02-24] MEDS: LISINOPRIL 5 MG TAB PO (08:49)
[2018-02-24] MEDS: ENOXAPARIN 40 MG/0.4 ML SYG SC ×2 (08:52→20:48)
[2018-02-24] MEDS: FLUTICASONE 0.05% 16 GM NAS SPRAY NASAL ×2 (09:00→21:00)
[2018-02-24] MEDS ORDERED: INFLUENZA VIRUS VACCINE 0.5 ML (DISPENSING) IM* (09:00)
[2018-02-24] MEDS: INSULIN GLARGINE [LANtus] 3 ML PEN SC (09:16)
[2018-02-24] MEDS: ASPIRIN 81 MG TAB PO (09:22)
[2018-02-24] MEDS: ATORVASTATIN 40 MG TAB PO (20:38)
[2018-02-25 05:07] LABS: ADD MAN DIFF? NO
[2018-02-25 05:12] LABS: BASOPHIL # 0.1 10^3/ul (0.0-0.1); BASOPHILS % 0.4 % (0.0-2.0); EOSINOPHILS # 0.4 10^3/ul (0.0-0.5); EOSINOPHILS % 3.1 % (0.0-7.0); HEMATOCRIT 27.3 % (37.0-47.0); HEMOGLOBIN 8.7 g/dl (12.0-16.0); LYMPHOCYTES # 2.6 10^3/ul (0.8-2.9); LYMPHOCYTES % 18.5 % (15.0-51.0); MEAN CORPUSCULAR HEMOGLOBIN 28.9 pg (29.0-33.0); MEAN CORPUSCULAR HGB CONC 31.9 g/dl (32.0-37.0); MEAN CORPUSCULAR VOLUME 90.7 fl (82.0-101.0); MEAN PLATELET VOLUME 10.2 fl (7.4-10.4); MONOCYTE # 1.2 10^3/ul (0.3-0.9); MONOCYTES % 8.8 % (0.0-11.0); NEUTROPHIL # 9.5 10^3/ul (1.6-7.5); NEUTROPHILS % 67.5 % (39.0-77.0); PLATELET COUNT 382 10^3/UL (140-415); RED BLOOD COUNT 3.01 10^6/ul (4.20-5.40); RED CELL DISTRIBUTION WIDTH 13.2 % (11.5-14.5)
[2018-02-25 05:31] LABS: ANION GAP 10 (8-16); BLOOD UREA NITROGEN 13 mg/dl (7-20); CALCIUM 8.2 mg/dl (8.4-10.2); CARBON DIOXIDE 33 mmol/L (21-31); CHLORIDE 100 mmol/L (97-110); CREATININE 0.77 mg/dl (0.44-1.00); GLUCOSE 139 mg/dl (70-220); MAGNESIUM 2.1 mg/dl (1.7-2.5); PHOSPHORUS 4.4 mg/dl (2.5-4.9); POTASSIUM 4.4 mmol/L (3.5-5.1); SODIUM 139 mmol/L (135-144)
[2018-02-25] MEDS: FUROSEMIDE 20 MG TAB PO (05:49)
[2018-02-25] MEDS: PANTOPRAZOLE (EC) 40 MG TAB PO (06:31)
[2018-02-25] MEDS: ESCITALOPRAM 10 MG TAB PO (08:58)
[2018-02-25] MEDS: CLOPIDOGREL 75 MG TAB PO (08:58)
[2018-02-25] MEDS: ASPIRIN 81 MG TAB PO (08:58)
[2018-02-25] MEDS: OXYCODONE/ACETAMINOPHEN (5/325) TAB PO ×2 (08:58→21:38)
[2018-02-25] MEDS: LISINOPRIL 5 MG TAB PO (08:59)
[2018-02-25] MEDS: FLUTICASONE 0.05% 16 GM NAS SPRAY NASAL ×2 (09:00→21:36)
[2018-02-25] MEDS: ENOXAPARIN 40 MG/0.4 ML SYG SC ×2 (09:01→21:45)
[2018-02-25] MEDS: INSULIN GLARGINE [LANtus] 3 ML PEN SC (09:02)
[2018-02-25] MEDS: INSULIN ASPART [NOVOLOG] 3 ML PEN SC ×7 (09:03→21:00)
[2018-02-25] MEDS: ATORVASTATIN 40 MG TAB PO (21:35)
[2018-02-26] MEDS: ACCU-CHEK XX (02:00)
[2018-02-26] MEDS: PANTOPRAZOLE (EC) 40 MG TAB PO (06:09)
[2018-02-26] MEDS: FUROSEMIDE 20 MG TAB PO (06:09)
[2018-02-26] MEDS: INSULIN ASPART [NOVOLOG] 3 ML PEN SC ×6 (07:50→17:47)
[2018-02-26] MEDS: ASPIRIN 81 MG TAB PO (08:47)
[2018-02-26] MEDS: CLOPIDOGREL 75 MG TAB PO (08:47)
[2018-02-26] MEDS: ESCITALOPRAM 10 MG TAB PO (08:47)
[2018-02-26] MEDS: LISINOPRIL 5 MG TAB PO (08:48)
[2018-02-26] MEDS: INSULIN GLARGINE [LANtus] 3 ML PEN SC (08:51)
[2018-02-26] MEDS: ENOXAPARIN 40 MG/0.4 ML SYG SC (08:52)
[2018-02-26] MEDS: FLUTICASONE 0.05% 16 GM NAS SPRAY NASAL (08:52)
[2018-02-26] MEDS: NITROGLYCERIN (SL) 0.4 MG TAB SL (10:08)
[2018-02-26] MEDS: OXYCODONE/ACETAMINOPHEN (5/325) TAB PO (10:27)
== END 2018-02-26 17:00 | disposition home health service (06) | DRG 853 ==
LOC: ICU 06:30 → TEL 02-15 14:23 → E/R 04:21 → MS1 02-23 22:35 → ICU 02-16 15:17
PROC: 5A02210 Assistance with Cardiac Output using Balloon Pump, Continuous (ICD-10-PCS; 2018-02-16 12:00)
PROC: 4A023N7 Measurement of Cardiac Sampling and Pressure, Left Heart, Percutaneous Approach (ICD-10-PCS; 2018-02-16 12:00)
PROC: B211YZZ Fluoroscopy of Multiple Coronary Arteries using Other Contrast (ICD-10-PCS; 2018-02-16 12:00)
PROC: 02100Z9 Bypass Coronary Artery, One Artery from Left Internal Mammary, Open Approach (ICD-10-PCS; principal; 2018-02-16 12:34)
PROC: 021009W Bypass Coronary Artery, One Artery from Aorta with Autologous Venous Tissue, Open Approach (ICD-10-PCS; 2018-02-16 12:34)
PROC: 06BP4ZZ Excision of Right Saphenous Vein, Percutaneous Endoscopic Approach (ICD-10-PCS; 2018-02-16 12:34)
PROC: 0BH17EZ Insertion of Endotracheal Airway into Trachea, Via Natural or Artificial Opening (ICD-10-PCS; 2018-02-16 12:34)
PROC: 5A1945Z Respiratory Ventilation, 24-96 Consecutive Hours (ICD-10-PCS; 2018-02-16 12:34)
PROC: 4A133R1 Monitoring of Arterial Saturation, Peripheral, Percutaneous Approach (ICD-10-PCS; 2018-02-16 12:34)
DX: A41.1 Sepsis due to other specified staphylococcus (principal); I21.4 Non-ST elevation (NSTEMI) myocardial infarction; J96.01 Acute respiratory failure with hypoxia; R65.21 Severe sepsis with septic shock; J18.9 Pneumonia, unspecified organism; I50.23 Acute on chronic systolic (congestive) heart failure; E87.0 Hyperosmolality and hypernatremia; E87.2 Acidosis; I25.110 Atherosclerotic heart disease of native coronary artery with unstable angina pectoris; K21.9 Gastro-esophageal reflux disease without esophagitis; F32.9 Major depressive disorder, single episode, unspecified; E11.65 Type 2 diabetes mellitus with hyperglycemia; I25.5 Ischemic cardiomyopathy; E78.00 Pure hypercholesterolemia, unspecified; D64.9 Anemia, unspecified; D69.6 Thrombocytopenia, unspecified; I11.0 Hypertensive heart disease with heart failure; Z90.49 Acquired absence of other specified parts of digestive tract
CPT/HCPCS: 31500; 36415; 36592; 36600; 71045; 71275; 80048; 80053; 80202; 81001; 82550; 82553; 82803; 82962; 83036; 83605; 83735; 83880; 84100; 84132; 84443; 84484; 85014; 85025; 85378; 85610; 85730; 86403; 86738; 86850; 86900; 86901; 86920; 87040; 87081; 87086; 87275; 87276; 87279; 87280; 93005; 93306; 93308; 93312; 93325; 93458; 94002; 94003; 94640; 94664; 94770; 96365; 96366; 96367; 96368; 96372; 96375; 96376; 97110; 97116; 97163; 97530; 99291-25